=== PATIENT | female | born 1960 | race Caucasian/White ===

== ENCOUNTER 2025-05-04 07:49 | Outpatient (AMB) | payer OTHER, SELFPAY ==
--- NOTE | 2025-05-04 07:51 | A.OFFPC_ITS ---
Vital Signs 05/04/25 07:57 05/04/25 08:29 Height 5 ft 3.23 in Weight 190 lb BMI 33.4 BP 130/78 122/78 Blood Pressure Location Lt brachial Lt brachial Position Sitting Respiration 18 Pulse 71 Pulse Source Pulse Oximeter Temp 98.3 F Temp Source Temporal Artery Scan Pulse Oximetry (%) 97 Oxygen Delivery Method Room Air Intake Visit Reasons: Routine - see comments Accompanied by: Self / Same As Patient Allergies amoxicillin (From Augmentin) Adverse Reaction (Intermediate, Verified 05/04/25 08:04) Dizziness clavulanic acid (From Augmentin) Adverse Reaction (Intermediate, Verified 05/04/25 08:04) Dizziness Medication List - Last Reconciled 05/04/25 by Lilly Hampton MD albuterol sulfate 90 mcg/actuation 1 puff inhalation Q4H PRN fenofibrate nanocrystallized 145 mg PO DAILY hydroxyzine pamoate 25 mg PO QID PRN inhalational spacing device (ProChamber) As directed levothyroxine 125 mcg PO DAILY rosuvastatin 40 mg PO DAILY Tobacco use date assessed: 05/04/25 Dental Screening Dental Screen Date: 05/04/25 Did you have a dental visit in the last 12 months?: No Did you have a dental problem in the last 6 months where you did not have access to dental care?: No Was dental information given to patient?: Patient declined HPI HPI Comments History of Present Illness Details The patient is a 64-year-old female presenting to [facility], [facility] primary care. Hypertension: The patient experienced an unexpected episode of elevated blood pressure, with a reading of 148/89 mmHg at an urgent care visit, which is unusual for her as she typically has low blood pressure. Subsequent home monitoring confirmed multiple readings over 140 mmHg. The condition is currently considered lifestyle- controlled, as she is not on any antihypertensive medications. Palpitations: Concurrent with her elevated blood pressure, the patient experienced symptoms of irregular heart rhythms, described as skips and a fluttering sensation, which were also detected by her home blood pressure cuff. These symptoms were associated with shortness of breath at the time. A nuclear stress test was performed and was negative, and a Holter monitor was not done. The palpitations resolved a few weeks before the stress test and have not recurred. Posterior Capsular Opacification: The patient reported a recurrence of vision problems following prior cataract surgery, characterized by significant glare and an inability to drive at night. She underwent a laser procedure to correct this. She states her vision is now significantly improved, describing it as night and day. Hypothyroidism- on levothyroxine Allergy to medication: The patient has a known allergy to Augmentin, which causes dizziness. Surgical History: - History of cataract surgery - YAG laser capsulotomy for posterior ca psular opacification Social History: - Family status: The patient is and has four grandchildren aged three and under. Family History: - Father had his first bypass surgery at a very young age. Diagnostic Results: - Blood Pressure: 130/78 mmHg (initial r eading). - Blood Pressure: 122/78 mmHg, left arm (physician reading). - Past Tests: A nuclear stress test was negative. [facility] Medical History (Updated 05/04/25 @ 12:53 by Lilly Hampton MD) Primary hypertension Hypothyroidism Generalized anxiety disorder Hyperlipidemia, unspecified Surgical History (Updated 05/04/25 @ 07:43 by Lilly Hampton MD) History of tubal ligation History of tonsillectomy Previous section History of colonoscopy (~12/03/18) Family History (Updated 05/04/25 @ 07:44 by Lilly Hampton MD) Sister Cancer Other Coronary artery disease Hyperlipidemia, unspecified Leukemia Social History Housing: House Patient Tobacco Use Status: Current everyday Tobacco user Tobacco use type: Cigarette Cigarettes Per Day: 10 Years Smoked: 43 years e-Cigarette/Vaping Use: Never Used service: No Current occupational status: employed Current occupation: [employer] Questionnaire PHQ-9 Over the last 2 weeks, how often have you been bothered by any of the following problems? 1. Little interest or pleasure in doing things: not at all 2. Feeling down, depressed, or hopeless: not at all 3. Trouble falling or staying asleep, or sleeping too much: several days 4. Feeling tired or having little energy: not at all 5. Poor appetite or overeating: several days 6. Feeling bad about yourself - or that you are a failure or have let yourself or your family down: not at all 7. Trouble concentrating on things, such as reading the newspaper or watching television: not at all 8. Moving or speaking so slowly that other people could have noticed. Or the opposite - being so fidgety or restless that you have been moving around a lot more than usual: not at all 9. Thoughts that you would be better off or of hurting yourself in some way: not at all Total score: 2 Source: Developed by Drs. Venkata Roland, Kathy Harris, Sajan Wilkins and colleagues, with an educational lucinda from [employer]. AUDIT C Alcohol Use Questionnaire (AUDIT-C) 1. How often do you have a drink containing alcohol?: Never 3. How often do you have six or more drinks on one occasion?: Never Total Score: 0 Review of Systems Narrative Review of Systems - Constitutional: Reports feeling better in the last month than in years. - Eyes: Reports significant improvement in night vision and glare following a recent laser procedure. - Cardiovascular: Denies current palpitations. Reports past episodes of irr egular rhythms and fluttering sensations. - Respiratory: Denies recent shortness of breath, cough, or symptoms of a cold. Reports past episodes of shortness of breath. - Musculoskeletal: Denies current pain. Reports recent resolution of chronic pain and resolution of pain from a recent fall on her left knee. Physical exam (Primary Care) Vital Signs: Last Vital Signs Temp 98.3 F 05/04/25 07:57 Pulse 71 05/04/25 07:57 Resp 18 05/04/25 07:57 BP 122/78 05/04/25 08:29 Pulse Ox 97 05/04/25 07:57 Oxygen Delivery Method Room Air 05/04/25 07:57 BMI result Body Mass Index 33.4 Tobacco/Smoking Status: Tobacco use Status Tobacco use date assessed 05/04/25 05/04/25 08:00 Patient Tobacco Use Status Current everyday Tobacco 05/04/25 08:00 Tobacco use type Cigarette 05/04/25 08:00 e-Cigarette/Vaping Use Never Used 05/04/25 08:00 PHQ-9: PHQ-9 Score PHQ-9: Total score 2 05/04/25 08:29 Narrative Physical Exam - Vitals: Blood pressure is 122/78 mmHg in the left arm. - Lungs: Clear to auscultation bilaterally with no wheezing. - Cardiovascular: Auscultation reveals a normal rate and rhythm with a known soft murmur. - Neck: Carotid arteries are clear without bruits. - Abdomen: Soft, non-distended, and non-tender with normal bowel sounds. - Extremities: No peripheral edema is noted in the lower extremities. Coding Level of Care Code Est Pt Level 4 (03273) Complex EM visit Add On G2211 Diagnoses Primary hypertension I10 Generalized anxiety disorder F41.1 Hyperlipidemia, unspecified hyperlipidemia type E78.5 Hyperlipidemia type: unspecified Hypothyroidism, unspecified type E03.9 Hypothyroidism type: unspecified Assessment & Plan Assessment & Plan (1) Primary hypertension: Code(s): I10 - Essential (primary) hypertension Category: Medical (2) Generalized anxiety disorder: Code(s): F41.1 - Generalized anxiety disorder Category: Medical (3) Hyperlipidemia, unspecified: Code(s): E78.5 - Hyperlipidemia, unspecified Category: Medical Qualifiers: Hyperlipidemia type: unspecified Qualified Code(s): E78.5 - Hyperlipidemia, unspecified (4) Hypothyroidism: Code(s): E03.9 - Hypothyroidism, unspecified Category: Medical Qualifiers: Hypothyroidism type: unspecified Qualified Code(s): E03.9 - Hypothyroidism, unspecified Plan Assessment and Plan 1. Hypertension - The patient has a history of new-onset elevated blood pressure but is currently normotensive with a reading of 122/78 mmHg. - The condition is considered lifestyle-controlled. - The plan includes continued self-monitoring if symptoms arise and ordering a baseline urine microalbumin test to assess for any renal impact from previous BP spikes. 2. Hypothyroidism- continue current regimen, check tfts 3. History of Palpitations - The patient's palpitations have resolved since her last evaluation, where a nuclear stress test was negative. - To investigate potential electrolyte causes, labs including a magnesium level will be checked. - The patient was advised to contact the office for further evaluation with a Holter monitor if symptoms recur. 4. Health Maintenance - The patient is due for routine screenings. - The plan is for her to schedule a mammogram. - She will also be scheduled for her annual physical exam in Jul 2025. - Routine lab work including cholesterol and thyroid levels will be checked today. - It was recommended that she receive both the influenza and updated COVID-19 vaccines Plan - Order lab work for today, to include cholesterol panel, thyroid function tests, electrolytes, and a magnesium level. - Order a urine microalbumin test to screen for proteinuria given the history of hypertension. - Patient to schedule her annual screening mammogram. - Advised patient to receive both an influenza vaccine and the updated COVID-19 vaccine. - Advised patient to monitor her blood pressure at home if she feels unwell or develops a headache and to contact the office if palpitations recur for potential Holter monitoring. Discussion Notes We reviewed her history of elevated blood pressure, and I explained that while her readings are normal today, the previous elevations mean she has a diagnosis of hypertension that is currently lifestyle-controlled. I advised her that stress and salt intake can cause it to spike. We also discussed her past palpitations, which have resolved. I informed her that if these symptoms were to recur, we would arrange for a Holter monitor to evaluate for a significant volume of PVCs or PACs that might require medication. I explained the rationale for ordering labs, including checking her magnesium level as an imbalance can sometimes cause palpitations I recommended she receive both the flu shot and the updated COVID-19 vaccine, Patient Instructions - Go to the lab to have your blood drawn today. You will also need to provide a urine sample. This will check your cholesterol, thyroid, electrolytes, magnesium, and kidney function. - Your prescriptions have been refilled and sent to [facility] in [place]. - It is recommended that you get a flu shot and the updated COVID-19 vaccine - Please call to schedule your screening mammogram. - If you feel unwell, have a headache, or notice any fluttering in your chest, check your blood pressure with your home machine. - If you experience the heart fluttering sensation again, please call our office right away. Orders: Orders Comprehensive Met. Panel Today E03.9 - Hypothyroidism, unspecified, E78.5 - Hyperlipidemia, unspecified, I10 - Essential (primary) hypertension Lipid Panel Today E03.9 - Hypothyroidism, unspecified, E78.5 - Hyperlipidemia, unspecified, I10 - Essential (primary) hypertension Microalbumin, Random (w Creat) Today I10 - Essential (primary) hypertension Complete Blood Count Auto Diff Today E03.9 - Hypothyroidism, unspecified, E78.5 - Hyperlipidemia, unspecified, I10 - Essential (primary) hypertension TSH reflex Free T4 Today E03.9 - Hypothyroidism, unspecified, E78.5 - Hyperlipidemia, unspecified, I10 - Essential (primary) hypertension Magnesium Today E03.9 - Hypothyroidism, unspecified, E78.5 - Hyperlipidemia, unspecified, I10 - Essential (primary) hypertension Medications: New levothyroxine 125 mcg PO DAILY 90 tabs 3RF rosuvastatin 40 mg PO DAILY 90 tabs 3RF albuterol sulfate 90 mcg/actuation 2 puffs inhalation Q6H PRN 8.5 grams 12RF wheezing fenofibrate nanocrystallized 145 mg PO DAILY 90 tabs 3RF 90 days
[2025-05-04 07:57] VITALS: BP 130/78; PULSE 71; RESP 18; TEMP 36.8; O2SAT 97; BMI 33.4
[2025-05-04 08:29] VITALS: BP 122/78
== END 2025-05-04 08:34 | disposition home or self-care (01) ==
LOC: HO.HMCHD 07:50
PROVIDERS: PCP Internal Medicine; Visit Provider Internal Medicine
DX: I10 Essential (primary) hypertension (principal); F41.1 Generalized anxiety disorder; E78.5 Hyperlipidemia, unspecified; E03.9 Hypothyroidism, unspecified

== ENCOUNTER 2025-05-04 08:41 | Outpatient (REF) | payer OTHER, SELFPAY ==
[2025-05-04 10:44] LABS: MANUAL DIFF FLAG NO
[2025-05-04 11:10] LABS: Hematocrit 41.0 % (37.0-47.0); Hemoglobin 13.6 g/dl (12.0-16.0); Imm Gran Abs Auto 0.03 X10*3/uL (0.00-0.03); Imm Gran Pct Auto 0.4 % (0.0-0.4); Lymphocytes Absolute Auto 1.7 X10*3/uL (1.2-4.9); Mean Corpuscular HGB Conc 33.2 g/dl (31.0-35.0); Mean Corpuscular Hemoglobin 30.2 pg (27.0-33.0); Mean Corpuscular Volume 91.1 fL (80.0-98.0); NRBC Abs Auto 0.000 X10*3/uL (0.0-0.012); NRBC Pct Auto 0.0 /100WBC (0.0-0.2); Platelet Count 290 X10*3/uL (160-400); Red Blood Count 4.50 X10*6/uL (4.20-5.50); White Blood Count 7.6 X10*3/uL (4.8-10.8)
[2025-05-04 11:22] LABS: Alanine Aminotransferase 48 U/L (0-31); Albumin Level 5.2 g/dL (3.5-5.0); Alkaline Phosphatase 86 U/L (39-117); Anion Gap 12 (12-20); Aspartate Amino Transferase 47 U/L (5-31); Blood Urea Nitrogen 11 mg/dL (9-16); Calcium 10.3 mg/dL (8.4-10.2); Carbon Dioxide 25 mmol/L (22-29); Chloride 108 mmol/L (96-108); Cholesterol 200 mg/dL (<200); Estimated Glomerular Filt Rate > 60; HDL Cholesterol 35 mg/dL (>40); Magnesium 2.1 mg/dL (1.6-2.6); Potassium 4.8 mmol/L (3.3-5.1); Sodium 140 mmol/L (135-145); Total Protein 7.9 g/dL (6.5-8.0); Triglycerides 233 mg/dL (<150)
[2025-05-04 11:29] LABS: Microalbum/Creatinine Ratio Ur 85.3 ug/mg cr (<30)
== END 2025-05-04 08:42 | disposition home or self-care (01) ==
LOC: HO.10HDL 08:41
PROVIDERS: Visit Provider Internal Medicine
DX: I10 Essential (primary) hypertension (principal); E78.5 Hyperlipidemia, unspecified; E03.9 Hypothyroidism, unspecified
CPT/HCPCS: 36415; 80053; 80061; 82043; 82570; 83735; 84443; 85025

== ENCOUNTER 2025-05-28 08:48 | Outpatient (REF) | payer OTHER, SELFPAY ==
[2025-05-28 10:47] LABS: Microalbum/Creatinine Ratio Ur 209.2 ug/mg cr (<30)
== END 2025-05-28 08:49 | disposition home or self-care (01) ==
LOC: HO.LAB 08:48
PROVIDERS: PCP Internal Medicine; Visit Provider Internal Medicine
DX: R80.9 Proteinuria, unspecified (principal)
CPT/HCPCS: 82043; 82570